=== PATIENT | female | born 1995 | race Caucasian/White ===

== ENCOUNTER 2019-01-12 11:03 | Inpatient (IN) | payer OTHER ==
[2019-01-12] MEDS: LACTATED RINGERS 1,000 ML IV SCH ×3 (13:15→16:52)
[2019-01-12] MEDS ORDERED: LIDOCAINE 0.5% (PF) 5 MG/ML (50 ML SDV) SQ PRN (14:03)
[2019-01-12] MEDS ORDERED: OXYTOCIN 10 UNIT/ML 1 ML VIAL IM PRN (14:03)
[2019-01-12] MEDS ORDERED: TERBUTALINE 1 MG/ML VIAL SQ PRN (14:03)
[2019-01-12] MEDS ORDERED: CARBOPROST TROMETHAMINE 250 MCG/ML 1 ML AMP IM PRN (14:03)
[2019-01-12] MEDS ORDERED: METHYLERGONOVINE 0.2 MG/ML 1 ML AMP IM PRN (14:03)
[2019-01-12] MEDS ORDERED: BUTORPHANOL 1 MG/ML 1 ML VIAL IV PRN (14:05)
--- NOTE | 2019-01-12 14:12 | P.HPOB ---
History of Present Illness H&P Date: 01/12/19 Chief Complaint: 39-6/7 weeks, early labor The patient is a 23-year-old 1 para 0 admitted at 39-6/7 weeks as established by last menstrual period and confirmed by second trimester ultrasound. She is admitted in early labor having made cervical change in the triage area with regular uterine contractions. Her has been uncomplicated. On labor and delivery, all signs are reassuring with category 1 heart rate tracing. Group B strep status is negative. Obstetrical history: 1 para 0 with current statistics listed in history present illness. EDC is 01/13/2019 was established by last menstrual period and confirmed by second trimester ultrasound. Laboratory workup demonstrates a blood type of A+ with a negative antibody screen. Rubella status is immune. Remainder of the laboratory workup was within normal limits. Early Glucola was normal second trimester Glucola was elevated. This was followed with a normal three-hour glucose tolerance test. Group B strep status is negative. Gynecologic history: Unremarkable with no history of any infections to include STDs. Review of Systems Review of systems is confined to history of present illness. Past Medical History Past Medical History: Asthma Additional Past Medical History / Comment(s): migraines History of Any Multi-Drug Resistant Organisms: None Reported Past Surgical History: No Surgical Hx Reported Past Psychological History: No Psychological Hx Reported Smoking Status: Never smoker Past Alcohol Use History: None Reported Past Drug Use History: None Reported Medications and Allergies Home Medications Medication Instructions Recorded Confirmed Type Pnv,Calcium 72/Iron/Folic Acid 1 each PO DAILY MDD 1 01/12/19 01/12/19 History [ Plus Tablet] Allergies Allergy/AdvReac Type Severity Reaction Status Date / Time acetaminophen [From Midrin] Allergy Anaphylaxis Verified 03/04/14 05:18 dichloralphenazone Allergy Anaphylaxis Verified 03/04/14 05:18 [From Midrin] isometheptene mucate Allergy Anaphylaxis Verified 03/04/14 05:18 [From Midrin] Exam Intake and Output 01/11/19 01/12/19 01/12/19 22:59 06:59 14:59 Other: Weight 82.1 kg In general, this is a well-developed, well-nourished white female in no acute distress. Her heart has a regular rhythm and rate without murmur. Her lungs are clear to auscultation bilaterally in all conde. Her abdomen is gravid, nondistended, has normal active bowel sounds, is soft, nontender, and without any palpable masses aside from uterine fundus. Her extremities are without any cyanosis, clubbing, or significant edema and are nontender to palpation bilaterally. Digital cervical examination demonstrates her cervix to be 4 cm dilated, approximately 80% effaced, with the vertex in presentation at -2 station. Artificial rupture of membranes is carried out demonstrating possible light meconium-stained fluid. Assessment and Plan (1) Active labor at term Current Visit: Yes Status: Acute Code(s): QVB8710 - SNOMED Code(s): 15623813 Plan: The patient has been admitted for active management of labor. She will have close maternal and surveillance and expectant management will be practiced. She is a good candidate for either IV or epidural analgesia, whichever she may choose. Should no significant cervical change be noted over the next hour or 2, Pitocin augmentation will be added.
[2019-01-12 15:17] LABS: Basophils % (A) 0 %; Eosinophils # (A) 0.1 k/uL (0-0.7); Eosinophils % (A) 0 %; HCT 43.1 % (34.0-46.0); Lymphocytes # (A) 1.5 k/uL (1.0-4.8); Lymphocytes % (A) 12 %; MCH 29.9 pg (25.0-35.0); MCHC 32.4 g/dL (31.0-37.0); MCV 92.2 fL (80.0-100.0); Mean Platelet Volume 9.6; Monocytes # (A) 0.7 k/uL (0-1.0); Monocytes % (A) 6 %; Neutrophils # (A) 9.7 k/uL (1.3-7.7); Neutrophils % (A) 80 %; Platelet Count 170 k/uL (150-450); RBC 4.67 m/uL (3.80-5.40); RDW 15.7 % (11.5-15.5); WBC 12.1 k/uL (3.8-10.6)
[2019-01-12 15:19] VITALS: BMI 30.1
[2019-01-12] MEDS ORDERED: SODIUM CHLORIDE 0.9% 100 ML BAG ONE (16:15)
[2019-01-12] MEDS ORDERED: fentaNYL (PF) 50 MCG/ML 5 ML AMP ONE (16:15)
[2019-01-12] MEDS ORDERED: ROPIVACAINE 5MG/ML 20ML VIAL ONE (16:15)
[2019-01-12] MEDS ORDERED: OXYTOCIN 30 UNITS/500 ML NS 30 UNIT in SALINE 1 500ML.BAG IV SCH (21:00)
[2019-01-12] MEDS ORDERED: ACETAMINOPHEN IV (For NPO) 1,000 MG in EMPTY BAG 1 BAG IVPB STA (23:29)
[2019-01-13] MEDS ORDERED: PENICILLIN G POTASSIUM 5,000,000 UNIT in DEXTROSE 5% IN WATER 100 ML IVPB STA ×2 (01:06)
[2019-01-13] MEDS ORDERED: SIMETHICONE 80 MG CHEWABLE PO PRN (05:00)
[2019-01-13] MEDS ORDERED: HYDROCORTISONE 2.5% RECTAL CREAM 30 GM TUBE RECTAL PRN (05:00)
[2019-01-13] MEDS ORDERED: HYDROcodone/APAP 5-325MG 1 EACH TAB PO PRN (05:00)
[2019-01-13] MEDS ORDERED: diphenhydrAMINE 50 MG CAP PO PRN (05:00)
[2019-01-13] MEDS ORDERED: ZOLPIDEM 5 MG TAB PO PRN (05:00)
[2019-01-13] MEDS ORDERED: diphenhydrAMINE 50 MG/ML 1 ML VIAL IVP PRN ×2 (05:00)
[2019-01-13] MEDS ORDERED: HYDROcodone/APAP 7.5-325MG 1 EACH TAB PO PRN (05:00)
[2019-01-13] MEDS ORDERED: WITCH HAZEL 1 EACH MED..PAD TOPICAL PRN (05:00)
[2019-01-13] MEDS ORDERED: BENZOCAINE/MENTHOL SPRAY 1 GM/SPRAY AEROSOL TOPICAL PRN (05:00)
[2019-01-13] MEDS ORDERED: diphenhydrAMINE 25 MG CAP PO PRN (05:00)
--- NOTE | 2019-01-13 05:05 | P.PROBDLV ---
Vaginal Delivery Note - . Vaginal Delivery Note: The patient is a 23-year-old 1 para 0 admitted at 39-6/7 weeks with labor progressing to 40-0/7 weeks as established by good dating parameters. She was admitted in early labor with all signs reassuring. Her was uncomplicated and group B strep status was negative. On labor and delivery, she had artificial rupture of membranes demonstrating at that time what appeared to be thin meconium-stained fluid. Over the course of her labor, it became appar ent that the fluid was actually thick meconium-stained. She had an epidural catheter placed for analgesia around the onset of the active phase of labor. She made very slow progress through the active phase of labor and had Pitocin augmentation started. She continued to make slow progress but ultimately did progress to complete where after she pushed over the course of approximately 2 hours to a normal spontaneous vaginal delivery of a viable 8 lbs. 11 oz. baby boy with Apgars of 9 at 1 minute and 9 at 5 minutes delivered in the right occiput anterior position. The nose and mouth were thoroughly suctioned with bulb suction prior to delivery of the and the infant was immediately vigorous after delivery. Certified nurse sales/marketing was standing by for direct laryngoscopy should it be necessary which it was not. The placenta was delivered spontaneously, intact, and grossly normal although there was a moderate amount of calcifications and it was clearly quite meconium-stained. There was a centrally inserted, grossly normal three-vessel cord which was very long in nature. Following delivery of the placenta, the perineum, vagina, and cervix were examined and there was noted to be bilateral labial lacerations at the labia minora which required suturing and were repaired with 3-0 chromic catgut without difficulty. There was a moderate amount of blood loss following delivery from what appeared to be uterine atony as the uterus did not respond to typical Pitocin bolus is. She therefore had one dose of Methergine given and bleeding significantly settled thereafter. Total blood loss was approximately 500 mL but may have been slightly more. All sponge, instrument, and needle counts were correct. There were no complications. Both mother and infant are resting comfortably in recovery.
[2019-01-13] MEDS ORDERED: PENICILLIN G POTASSIUM 2,500,000 UNIT in DEXTROSE 5% IN WATER 100 ML IVPB SCH ×2 (05:06)
[2019-01-13] MEDS: IBUPROFEN 600 MG TAB PO PRN ×3 (05:15→22:11)
[2019-01-13] MEDS: OXYTOCIN 20 UNITS/1000 ML NS 1,000 ML IV SCH ×2 (05:39→07:14)
[2019-01-13] MEDS: ACETAMINOPHEN TAB 325 MG TAB PO PRN (07:24)
[2019-01-13] MEDS: SENNOSIDES-DOCUSATE SODIUM 1 EACH TAB PO SCH ×2 (07:24→20:35)
[2019-01-13 13:01] LABS: Basophils % (A) 0 %; Eosinophils % (A) 0 %; HCT 27.6 % (34.0-46.0); Lymphocytes # (A) 1.7 k/uL (1.0-4.8); Lymphocytes % (A) 9 %; MCH 30.1 pg (25.0-35.0); MCHC 33.1 g/dL (31.0-37.0); Monocytes # (A) 0.9 k/uL (0-1.0); Monocytes % (A) 5 %; Neutrophils # (A) 16.7 k/uL (1.3-7.7); Neutrophils % (A) 86 %; Platelet Count 147 k/uL (150-450); RBC 3.03 m/uL (3.80-5.40); RDW 15.7 % (11.5-15.5); WBC 19.5 k/uL (3.8-10.6)
[2019-01-13 13:11] LABS: HGB 9.1 gm/dL (11.4-16.0)
[2019-01-14] MEDS: LACTATED RINGERS 1,000 ML IV SCH ×3 (05:19→05:30)
[2019-01-14 06:28] LABS: Basophils % (A) 0 %; Eosinophils # (A) 0.2 k/uL (0-0.7); Eosinophils % (A) 1 %; HGB 7.9 gm/dL (11.4-16.0); Lymphocytes # (A) 2.2 k/uL (1.0-4.8); Lymphocytes % (A) 19 %; MCH 30.4 pg (25.0-35.0); MCHC 32.7 g/dL (31.0-37.0); Mean Platelet Volume 9.5; Monocytes # (A) 0.6 k/uL (0-1.0); Monocytes % (A) 6 %; Neutrophils # (A) 8.2 k/uL (1.3-7.7); Neutrophils % (A) 72 %; Platelet Count 142 k/uL (150-450); RBC 2.58 m/uL (3.80-5.40); RDW 15.9 % (11.5-15.5); WBC 11.4 k/uL (3.8-10.6)
[2019-01-14] MEDS: ACETAMINOPHEN TAB 325 MG TAB PO PRN ×2 (11:34→22:11)
[2019-01-14] MEDS: SENNOSIDES-DOCUSATE SODIUM 1 EACH TAB PO SCH ×2 (11:35→22:11)
--- NOTE | 2019-01-14 11:38 | P.PNOBGVD ---
Subjective - Subjective Interval history: Denies any signs or symptoms of orthostasis at this time. Patient reports: Reports appetite normal, Reports voiding normally, Reports pain well controlled, Reports ambulating normally Tyler: doing well, in NICU (For probable transient tachypnea, currently weaning from oxygen.) Objective - Latest Vital Signs Latest vital signs: Vital Signs Temp Pulse Resp BP Pulse Ox 01/14/19 00:00 98.5 F 110 H 16 112/62 01/13/19 20:00 98.8 F 123 H 16 125/82 01/13/19 16:00 98.4 F 112 H 18 123/68 98 Intake and Output 01/13/19 01/14/19 01/14/19 22:59 06:59 14:59 Other: # Voids 1 1 - Exam Extremities: Present: normal Abdomen: Present: normal appearance, soft Uterus: Present: normal, firm (The fundus is tonic and nontender below the umbilicus.) - Labs Labs: Abnormal Lab Results - Last 24 Hours (Table) 01/13/19 01/14/19 Range/Units 12:35 06:16 WBC 19.5 H 11.4 H (3.8-10.6) k/uL RBC 3.03 L 2.58 L (3.80-5.40) m/uL Hgb 9.1 L D 7.9 L (11.4-16.0) gm/dL Hct 27.6 L 24.0 L (34.0-46.0) % RDW 15.7 H 15.9 H (11.5-15.5) % Plt Count 147 L 142 L (150-450) k/uL Neutrophils # 16.7 H 8.2 H (1.3-7.7) k/uL Assessment and Plan (1) Active labor at term Current Visit: Yes Status: Acute Code(s): [id number] - SNOMED Code(s): 90389043 (2) Normal spontaneous vaginal delivery Current Visit: Yes Status: Acute Code(s): O80 - ENCOUNTER FOR FULL-TERM UNCOMPLICATED DELIVERY SNOMED Code(s): 65559825 Plan: Continue routine care as the remains in the nursery for oxygen supplementation. I would anticipate discharge home tomorrow pending complications. Despite fairly significant blood loss, vital signs are stable though there remains some tachycardia. As noted above, the patient denies any ongoing symptoms of orthostasis.
[2019-01-14] MEDS: IBUPROFEN 600 MG TAB PO PRN (18:13)
[2019-01-15 01:54] VITALS: TEMP 98.1
[2019-01-15] MEDS: LACTATED RINGERS 1,000 ML IV SCH ×3 (01:56→01:58)
[2019-01-15] MEDS: SENNOSIDES-DOCUSATE SODIUM 1 EACH TAB PO SCH (09:29)
--- NOTE | 2019-01-15 10:05 | P.DS ---
Providers Date of admission: 01/12/19 12:52 Expected date of discharge: 01/15/19 Attending physician: Tanisha Sinha Primary care physician: Stated None Hospital Course: This is a 23-year-old white female 1 para 0 EDC 01/14/2019 who presented at 39-6/7 weeks' gestation in active labor. Patient's course was essentially unremarkable, group B strep cultures negative, blood type A positive, rubella status immune. Please see dictated history and physical for details. Artificial amniorrhexis revealed meconium-stained fluid. Oxytocin was started and titrated per hospital protocol. Patient went on to deliver vaginally a liveborn male infant with scores of 9 and 9 at one and 5 minutes respectively. He weighed 3985 g or 8 lbs. 11 oz. Please see dictated delivery note for details. This morning the patient is doing well. She is voiding, ambulating and passing flatus without difficulty. Vital signs are stable and she is afebrile. Fundus is firm and in the midline, symmetric and 18 week size. Extremities are negative for edema. Breasts are not engorged. Lochia rubra is moderate. Pain is well-controlled. Patient is judged to be in very good condition for discharge home. Her infant will remain in the nursery for an additional 24 hours per recommendation of regulatory lead. Patient will follow-up with me in the office in 6 weeks. I have reminded her no intercourse, tampons or douching. She will use [id number] Motrin Aleve or Advil as needed for pain. She will call with any fevers shakes or chills, foul smelling or copious lochia, with the passage of large blood clots, with any pain not alleviated by [id number] products, or indeed with any concerns. She is contemplating her options for contraception and we will discuss this further. Patient Condition at Discharge: Good Plan - Discharge Summary Discharge Rx Participant: No New Discharge Prescriptions: No Action Pnv,Calcium 72/Iron/Folic Acid [ Plus Tablet] 1 each PO DAILY MDD 1 Discharge Medication List Pnv,Calcium 72/Iron/Folic Acid [ Plus Tablet] 1 each PO DAILY MDD 1 01/12/19 [History] Follow up Appointment(s)/Referral(s): Tanisha Sinha MD [STAFF PHYSICIAN] - 6 Weeks Discharge Disposition: HOME SELF-CARE
[2019-01-15] MEDS: IBUPROFEN 600 MG TAB PO PRN ×2 (10:56→17:11)
[2019-01-15 17:04] VITALS: BP 130/89; PULSE 102; RESP 18
== END 2019-01-15 18:33 | disposition home or self-care (01) | DRG 806 ==
LOC: FBPOP 11:03 → 4FBP 12:52
PROVIDERS: ADMIT Obstetrics & Gynecology; ATTEND Obstetrics & Gynecology
PROC: 00HU33Z Insertion of Infusion Device into Spinal Canal, Percutaneous Approach (ICD-10-PCS; 2019-01-12)
PROC: 3E0R3BZ Introduction of Anesthetic Agent into Spinal Canal, Percutaneous Approach (ICD-10-PCS; 2019-01-12)
PROC: 10E0XZZ Delivery of Products of Conception, External Approach (ICD-10-PCS; principal; 2019-01-13)
PROC: 0HQ9XZZ Repair Perineum Skin, External Approach (ICD-10-PCS; 2019-01-13)
DX: O77.0 Labor and delivery complicated by meconium in amniotic fluid (principal); O72.1 Other immediate postpartum hemorrhage; Z37.0 Single live birth; O70.0 First degree perineal laceration during delivery; Z3A.39 39 weeks gestation of pregnancy; O99.52 Diseases of the respiratory system complicating childbirth; J45.909 Unspecified asthma, uncomplicated; G43.909 Migraine, unspecified, not intractable, without status migrainosus; Z79.899 Other long term (current) drug therapy; Z88.6 Allergy status to analgesic agent; Z88.8 Allergy status to other drugs, medicaments and biological substances
CPT/HCPCS: 59025; 85025; 86850; 86900; 86901; 88307; 99213

== ENCOUNTER → 2019-05-03 | Outpatient (CLI) | payer OTHER ==
[2019-05-03 15:02] LABS: Anisocytosis Slight; Basophils # (A) 0.1 k/uL (0-0.2); Basophils % (A) 1 %; Eosinophils # (A) 0.2 k/uL (0-0.7); Eosinophils % (A) 3 %; HCT 41.1 % (34.0-46.0); HGB 13.4 gm/dL (11.4-16.0); Lymphocytes # (A) 1.5 k/uL (1.0-4.8); Lymphocytes % (A) 28 %; MCH 27.2 pg (25.0-35.0); MCHC 32.6 g/dL (31.0-37.0); MCV 83.3 fL (80.0-100.0); Mean Platelet Volume 7.4; Monocytes # (A) 0.3 k/uL (0-1.0); Monocytes % (A) 6 %; Neutrophils # (A) 3.3 k/uL (1.3-7.7); Neutrophils % (A) 60 %; Platelet Count 264 k/uL (150-450); RBC 4.94 m/uL (3.80-5.40); RDW 16.8 % (11.5-15.5); WBC 5.5 k/uL (3.8-10.6)
[2019-05-03 15:06] LABS: INR 1.1 (<1.2); Prothrombin Time 11.9 sec (9.0-12.0)
[2019-05-03 19:14] LABS: African American GFR (CKD) 118.8 (60.0-200.0); Albumin 4.5 g/dL (3.80-4.90); Albumin/Globulin Ratio 2.65 (1.60-3.17); Anion Gap 10.5 mmol/L (4.00-12.00); BUN/Creat Ratio 13.75 Ratio (12.00-20.00); Calcium 8.5 mg/dL (8.7-10.3); Carbon Dioxide 25.5 mmol/L (21.6-31.8); Globulin 1.7 g/dL (1.6-3.3); Non-African American GFR(CKD) 102.5 (60.0-200.0); Potassium 3.9 mmol/L (3.5-5.5); Total Bilirubin 0.6 mg/dL (0.2-1.2); Total Protein 6.2 g/dL (6.2-8.2)
== END | disposition home or self-care (01) ==
LOC: LABWHC1 14:06
PROVIDERS: ATTEND Family Medicine
DX: N92.0 Excessive and frequent menstruation with regular cycle (principal)
CPT/HCPCS: 36415; 80053; 85025; 85610; 85730

== ENCOUNTER → 2020-08-28 | Outpatient (CLI) | payer OTHER, BC ==
--- NOTE | 2020-08-28 12:09 | US ---
EXAMINATION TYPE: US thyroid st tissue head/neck DATE OF EXAM: 08/28/2020 COMPARISON: NONE CLINICAL HISTORY: E04.[address] palpated nodule. GLAND SIZE: Right Lobe: 5.0 x 1.5 x 1.2 cm Overall Parenchyma: homogenous Left Lobe: 5.0 x 1.1 x 1.3 cm Overall Parenchyma: homogeneous Isthmus Thickness: 0.2 cm NODULES RIGHT: # of nodules measured on right: 0 LEFT: # of nodules measured on left: 0 ISTHMUS: # of nodules measured in the isthmus: 0 Bilateral neck scanned, no evidence of lymphadenopathy. IMPRESSION: Normal thyroid ultrasound
== END | disposition home or self-care (01) ==
LOC: RADUSWWP 11:01
PROVIDERS: ATTEND Family Medicine
DX: E04.9 Nontoxic goiter, unspecified (principal)
CPT/HCPCS: 76536

== ENCOUNTER 2020-10-09 16:44 | Emergency (ER) | payer OTHER ==
[2020-10-09 16:48] VITALS: TEMP 99
--- NOTE | 2020-10-09 17:20 | ED ---
Arrhythmia/Palpitations HPI - General Chief Complaint: Arrhythmia/Palpitations Stated Complaint: Chest Pain, SOB Time Seen by Provider: 10/09/20 16:59 Source: patient, RN notes reviewed Mode of arrival: ambulatory Limitations: no limitations - History of Present Illness Initial Comments: 25-year-old white female, underweight patient presents to the emergency room with complaints of feeling palpitations with chest tightness and shortness of breath since Monday. Seen her PMD Dr. Ndiaye and medications were changed for her anxiety. Patient had ultrasound of her thyroid, and lab work all was within normal limits. Patient states she smokes marijuana, vapes, but denies any other illicit drugs. patient admits to drinking half a cup of coffee a day no other caffeine intake. Anxiety was diagnosed in 2018 when she was placed on medications. Patient states father had 3 heart attacks, first in his early 40s and now Has a defibrillator currently in place. Paternal grandmother also has cardiac conditions. No sudden cardiac in the family. patient states Dr. Ndiaye prescribed methylphenidate 40 mg on Monday for her anxity. patient jamar es fevers, states had one episode of vomiting on Monday but not since. Appetite has decreased. MD Complaint: palpitations -: days(s) (3) Context: recent drug use, change in medication Associated Symptoms: chest pain, nausea/vomiting, anxiety Treatments Prior to Arrival: beta-roberto - Related Data Home Medications Medication Instructions Recorded Confirmed Methylphenidate HCl 40 mg PO DAILY 10/09/20 10/09/20 [Methylphenidate HCl CD] Metoprolol Succinate [Toprol XL] 25 mg PO DAILY 10/09/20 10/09/20 Venlafaxine HCl ER [Effexor Xr] 75 mg PO DAILY 10/09/20 10/09/20 busPIRone HCL 15 mg PO BID@1500,2300 10/09/20 10/09/20 busPIRone HCL 30 mg PO QAM 10/09/20 10/09/20 Allergies Allergy/AdvReac Type Severity Reaction Status Date / Time dichloralphenazone Allergy Anaphylaxis Verified 10/09/20 17:51 [From Midrin] isometheptene mucate Allergy Anaphylaxis Verified 10/09/20 17:51 [From Midrin] Review of Systems ROS Statement: Those systems with pertinent positive or pertinent negative responses have been documented in the HPI. ROS Other: All systems not noted in ROS Statement are negative. Past Medical History Past Medical History: Asthma Additional Past Medical History / Comment(s): migraines History of Any Multi-Drug Resistant Organisms: None Reported Past Surgical History: No Surgical Hx Reported Past Anesthesia/Blood Transfusion Reactions: No Reported Reaction Past Psychological History: No Psychological Hx Reported Smoking Status: Vaper Past Alcohol Use History: None Reported Past Drug Use History: None Reported - Past Family History Mother Family Medical History: Musculoskeletal Disorder Additional Family Medical History / Comment(s): back surgery, stomach ulcers, migraines General Exam Limitations: no limitations General appearance: alert, anxious Head exam: Present: atraumatic, normocephalic, normal inspection Eye exam: Present: normal appearance, PERRL, EOMI. Absent: scleral icterus, conjunctival injection, periorbital swelling Neck exam: Present: normal inspection. Absent: tenderness, meningismus, lymphadenopathy Respiratory exam: Present: normal lung sounds bilaterally. Absent: respiratory distress, wheezes, rales, rhonchi, stridor Cardiovascular Exam: Present: normal rhythm, tachycardia (rate 107 no ectopy), normal heart sounds GI/Abdominal exam: Present: soft, normal bowel sounds. Absent: distended, tenderness, guarding, rebound, rigid Neurological exam: Present: alert, oriented X3, CN II-XII intact Psychiatric exam: Present: anxious Skin exam: Present: warm, dry, other (tattoo to base of neck with son's birthdate) Course Vital Signs 10/09/20 10/09/20 16:45 18:43 Temperature 99.0 F Pulse Rate 116 H 96 Respiratory 20 16 Rate Blood Pressure 148/93 127/71 O2 Sat by Pulse 99 98 Oximetry EKG Findings - EKG Comments: EKG Findings:: EKG shows sinus tachycardia at a ventricular rate of 107, NV interval of 24 ms QRS of 94 ms QTc of 448. repeat EKG done at 1832 shows ventricular rate of 81 NV interval of 114 ms QRS of 92 ms and QTC of 439 ms. Normal sinus rhythm with sinus arrhythmia - EKG Results: EKG: interpreted by BRENDEN, sinus rhythm EKG shows: tachycardia Medical Decision Making - Medical Decision Making labs REVIEWed with ketones in urine. patient hydrated with 1 L of normal saline. States feels better less anxious, ventricular rate 81 sinus rhythm on repeat EKG. Patient advised follow-up with primary care doctor this week regarding anxiety. she comfortable with going home feels less anxious and that Labs were within normal limits and EKG sinus. - Lab Data Result diagrams: 10/09/20 17:28 10/09/20 17:28 Lab Results 10/09/20 10/09/20 10/09/20 Range/Units 17:28 17:28 17:28 WBC 6.2 (3.8-10.6) k/uL RBC 4.53 (3.80-5.40) m/uL Hgb 13.5 (11.4-16.0) gm/dL Hct 40.6 (34.0-46.0) % MCV 89.7 (80.0-100.0) fL MCH 29.8 (25.0-35.0) pg MCHC 33.2 (31.0-37.0) g/dL RDW 12.8 (11.5-15.5) % Plt Count 238 (150-450) k/uL MPV 7.4 Neutrophils % 72 % Lymphocytes % 20 % Monocytes % 6 % Eosinophils % 0 % Basophils % 0 % Neutrophils # 4.4 (1.3-7.7) k/uL Lymphocytes # 1.3 (1.0-4.8) k/uL Monocytes # 0.4 (0-1.0) k/uL Eosinophils # 0.0 (0-0.7) k/uL Basophils # 0.0 (0-0.2) k/uL D-Dimer (<0.60) mg/L FEU Sodium 135 L (137-145) mmol/L Potassium 3.8 (3.5-5.1) mmol/L Chloride 102 (98-107) mmol/L Carbon Dioxide 22 (22-30) mmol/L Anion Gap 11 mmol/L BUN 14 (7-17) mg/dL Creatinine 0.61 (0.52-1.04) mg/dL Est GFR (CKD-EPI)AfAm >90 (>60 ml/min/1.73 sqM) Est GFR (CKD-EPI)NonAf >90 (>60 ml/min/1.73 sqM) Glucose 125 H (74-99) mg/dL Calcium 9.3 (8.4-10.2) mg/dL Magnesium 1.9 (1.6-2.3) mg/dL Total Bilirubin 0.9 (0.2-1.3) mg/dL AST 25 (14-36) U/L ALT 16 (4-34) U/L Alkaline Phosphatase 38 (38-126) U/L Troponin I <0.012 (0.000-0.034) ng/mL Total Protein 7.5 (6.3-8.2) g/dL Albumin 4.8 (3.5-5.0) g/dL TSH 1.270 (0.465-4.680) mIU/L Urine Color Urine Appearance (Clear) Urine pH (5.0-8.0) Ur Specific [place] (1.001-1.035) Urine Protein (Negative) Urine Glucose (UA) (Negative) Urine Ketones (Negative) Urine Blood (Negative) Urine Nitrite (Negative) Urine Bilirubin (Negative) Urine Urobilinogen (<2.0) mg/dL Ur Leukocyte Esterase (Negative) Urine HCG, Qual (Not Detectd) Urine Opiates Screen (NotDetected) Ur Oxycodone Screen (NotDetected) Urine Methadone Screen (NotDetected) Ur Propoxyphene Screen (NotDetected) Ur Barbiturates Screen (NotDetected) U Tricyclic Antidepress (NotDetected) Ur Phencyclidine Scrn (NotDetected) Ur Amphetamines Screen (NotDetected) U Methamphetamines Scrn (NotDetected) U Benzodiazepines Scrn (NotDetected) Urine Cocaine Screen (NotDetected) U Marijuana (THC) Screen (NotDetected) 10/09/20 10/09/20 10/09/20 Range/Units 17:28 17:35 17:35 WBC (3.8-10.6) k/uL RBC (3.80-5.40) m/uL Hgb (11.4-16.0) gm/dL Hct (34.0-46.0) % MCV (80.0-100.0) fL MCH (25.0-35.0) pg MCHC (31.0-37.0) g/dL RDW (11.5-15.5) % Plt Count (150-450) k/uL MPV Neutrophils % % Lymphocytes % % Monocytes % % Eosinophils % % Basophils % % Neutrophils # (1.3-7.7) k/uL Lymphocytes # (1.0-4.8) k/uL Monocytes # (0-1.0) k/uL Eosinophils # (0-0.7) k/uL Basophils # (0-0.2) k/uL D-Dimer <0.17 (<0.60) mg/L FEU Sodium (137-145) mmol/L Potassium (3.5-5.1) mmol/L Chloride (98-107) mmol/L Carbon Dioxide (22-30) mmol/L Anion Gap mmol/L BUN (7-17) mg/dL Creatinine (0.52-1.04) mg/dL Est GFR (CKD-EPI)AfAm (>60 ml/min/1.73 sqM) Est GFR (CKD-EPI)NonAf (>60 ml/min/1.73 sqM) Glucose (74-99) mg/dL Calcium (8.4-10.2) mg/dL Magnesium (1.6-2.3) mg/dL Total Bilirubin (0.2-1.3) mg/dL AST (14-36) U/L ALT (4-34) U/L Alkaline Phosphatase (38-126) U/L Troponin I (0.000-0.034) ng/mL Total Protein (6.3-8.2) g/dL Albumin (3.5-5.0) g/dL TSH (0.465-4.680) mIU/L Urine Color Yellow Urine Appearance Clear (Clear) Urine pH 6.5 (5.0-8.0) Ur Specific [place] 1.022 (1.001-1.035) Urine Protein Negative (Negative) Urine Glucose (UA) Negative (Negative) Urine Ketones 2+ H (Negative) Urine Blood Negative (Negative) Urine Nitrite Negative (Negative) Urine Bilirubin Negative (Negative) Urine Urobilinogen 2.0 (<2.0) mg/dL Ur Leukocyte Esterase Negative (Negative) Urine HCG, Qual Not Detected (Not Detectd) Urine Opiates Screen Not Detected (NotDetected) Ur Oxycodone Screen Not Detected (NotDetected) Urine Methadone Screen Not Detected (NotDetected) Ur Propoxyphene Screen Not Detected (NotDetected) Ur Barbiturates Screen Not Detected (NotDetected) U Tricyclic Antidepress Not Detected (NotDetected) Ur Phencyclidine Scrn Not Detected (NotDetected) Ur Amphetamines Screen Not Detected (NotDetected) U Methamphetamines Scrn Not Detected (NotDetected) U Benzodiazepines Scrn Not Detected (NotDetected) Urine Cocaine Screen Not Detected (NotDetected) U Marijuana (THC) Screen Detected H (NotDetected) Disposition Clinical Impression: Palpitations, Dehydration Disposition: HOME SELF-CARE Condition: Stable Instructions (If sedation given, give patient instructions): Heart Palpitations (ED), Dehydration (ED) Additional Instructions: continue taking medications as prescribed by your doctor and follow up with your primary care doctor this week. Return to the emergency room if chest pain shortness of breath or increasing palpitations. Is patient prescribed a controlled substance at d/c from ED?: No Referrals: Tona Ndiaye MD [Primary Care Provider] - 1-2 days Time of Disposition: 19:43
[2020-10-09] MEDS ORDERED: SODIUM CHLORIDE 0.9% 1,000 ML IV STA (17:24)
[2020-10-09 17:44] LABS: Basophils % (A) 0 %; Eosinophils % (A) 0 %; HCT 40.6 % (34.0-46.0); HGB 13.5 gm/dL (11.4-16.0); Lymphocytes # (A) 1.3 k/uL (1.0-4.8); Lymphocytes % (A) 20 %; MCH 29.8 pg (25.0-35.0); MCHC 33.2 g/dL (31.0-37.0); MCV 89.7 fL (80.0-100.0); Mean Platelet Volume 7.4; Monocytes # (A) 0.4 k/uL (0-1.0); Monocytes % (A) 6 %; Neutrophils # (A) 4.4 k/uL (1.3-7.7); Neutrophils % (A) 72 %; Platelet Count 238 k/uL (150-450); RBC 4.53 m/uL (3.80-5.40); RDW 12.8 % (11.5-15.5); WBC 6.2 k/uL (3.8-10.6)
[2020-10-09 17:44] LABS: Appearance,Urine Clear (Clear); Bilirubin,Urine Negative (Negative); Blood,Urine Negative (Negative); Color,Urine Yellow; Glucose,Urine (UA) Negative (Negative); Ketones,Urine 2+ (Negative); Leukocyte Esterase,Urine Negative (Negative); Nitrite,Urine Negative (Negative); PH, Urine 6.5 (5.0-8.0); Protein,Urine Negative (Negative); Specific Gravity,Urine 1.022 (1.001-1.035)
[2020-10-09 17:45] LABS: ALT 16 U/L (4-34); AST 25 U/L (14-36); African American GFR (CKD) >90 (>60 ml/min/1.73 sqM); Albumin 4.8 g/dL (3.5-5.0); Alkaline Phosphatase 38 U/L (38-126); Anion Gap 11 mmol/L; Blood Urea Nitrogen 14 mg/dL (7-17); Calcium 9.3 mg/dL (8.4-10.2); Carbon Dioxide 22 mmol/L (22-30); Chloride 102 mmol/L (98-107); Glucose 125 mg/dL (74-99); Magnesium 1.9 mg/dL (1.6-2.3); Non-African American GFR(CKD) >90 (>60 ml/min/1.73 sqM); Potassium 3.8 mmol/L (3.5-5.1); Sodium 135 mmol/L (137-145); Total Bilirubin 0.9 mg/dL (0.2-1.3); Total Protein 7.5 g/dL (6.3-8.2)
[2020-10-09 17:54] LABS: Amphetamine Screen,Urine Not Detected (NotDetected); Barbiturate Screen,Urine Not Detected (NotDetected); Benzodiazepines Screen,Urine Not Detected (NotDetected); Cocaine Screen,Urine Not Detected (NotDetected); Methadone Screen, Urine Not Detected (NotDetected); Opiate Screen,Urine Not Detected (NotDetected); Oxycodone Screen, Urine Not Detected (NotDetected); Phencyclidine Screen,Urine Not Detected (NotDetected); Tricyclic Antidepressant,Urine Not Detected (NotDetected); Urn Cannabinoid Scrn Detected (NotDetected)
[2020-10-09 18:44] VITALS: BP 127/71; RESP 16
[2020-10-09 20:04] VITALS: PULSE 72
== END 2020-10-09 20:04 | disposition home or self-care (01) ==
LOC: EC 16:44
DX: E86.0 Dehydration (principal); R00.2 Palpitations; J45.909 Unspecified asthma, uncomplicated; F41.9 Anxiety disorder, unspecified; R82.4 Acetonuria; F17.290 Nicotine dependence, other tobacco product, uncomplicated; Z79.899 Other long term (current) drug therapy; Z88.8 Allergy status to other drugs, medicaments and biological substances
CPT/HCPCS: 36415; 80053; 80306; 81003; 81025; 83735; 84443; 84484; 85025; 85379; 93005; 96360; 99285

== ENCOUNTER → 2020-10-12 | Outpatient (CLI) | payer OTHER ==
--- NOTE | 2020-10-13 07:46 | ECHOF ---
Referral Reason:R01.1 heart murmur MEASUREMENTS -------- HEIGHT: 162.6 cm WEIGHT: 47.2 kg BP: RVIDd: 3.0 cm (< 3.3) IVSd: 0.6 cm (0.6 - 1.1) LVIDd: 4.3 cm (3.9 - 5.3) LVPWd: 1.0 cm (0.6 - 1.1) IVSs: 0.9 cm LVIDs: 3.6 cm LVPWs: 1.1 cm LA Diam: 2.5 cm (2.7 - 3.8) LAESV Index (A-L): 11.47 ml/m Ao Diam: 2.5 cm (2.0 - 3.7) AV Cusp: 1.8 cm (1.5 - 2.6) MV EXCURSION: 23.427 mm (> 18.000) MV EF SLOPE: 92 mm/s (70 - 150) EPSS: 0.7 cm MV E [place]dal[place]: 0.59 m/s MV DecT: 193 ms MV A [place]: 0.67 m/s MV E/A Ratio: 0.87 RAP: 5.00 mmHg RVSP: 19.39 mmHg FINDINGS -------- Sinus rhythm. This was a technically good study. LV size, wall thickness and systolic function are normal, with an EF greater than 55%. The left shayna tricular size is normal. The right ventricle is normal in size. The left atrial size is normal. The right atrial size is normal. The aortic valve is trileaflet, and appears structurally normal. No aortic stenosis or regurgitation. Mild mitral regurgitation is present. Mild tricuspid regurgitation present. Right ventricular systolic pressure is normal at < 35 mmHg. There is no pulmonic regurgitation present. The aortic root size is normal. There is no pericardial effusion. CONCLUSIONS -------- 1. LV size, wall thickness and systolic function are normal, with an EF greater than 55%. 2. The left ventricular size is normal. 3. The right ventricle is normal in size. 4. The left atrial size is normal. 5. The right atrial size is normal. 6. The aortic valve is trileaflet, and appears structurally normal. No aortic stenosis or regurgitati on. 7. Mild mitral regurgitation is present. 8. Mild tricuspid regurgitation present. 9. There is no pericardial effusion. HAND ETCHER HELPER: Oliva Lazaro RDCS
== END | disposition home or self-care (01) ==
LOC: RADECHMAIN 14:59
PROVIDERS: ATTEND Family Medicine
DX: I08.1 Rheumatic disorders of both mitral and tricuspid valves (principal)
CPT/HCPCS: 93306

== ENCOUNTER → 2021-01-14 | Outpatient (CLI) | payer OTHER, BC ==
[2021-01-14 14:24] LABS: Basophils # (A) 0.02 X 10*3/uL (0.00-0.10); Basophils % (A) 0.5 %; Eosinophils # (A) 0 X 10*3/uL (0.04-0.35); Eosinophils % (A) 0 %; HCT 41.5 % (37.2-46.3); HGB 13.1 g/dL (12.0-15.0); Lymphocytes # (A) 1.54 X 10*3/uL (0.90-5.00); Lymphocytes % (A) 35.4 %; MCHC 31.6 g/dL (32.0-37.0); Mean Platelet Volume 10.8 fL (9.5-12.2); Monocytes # (A) 0.41 X 10*3/uL (0.20-1.00); Monocytes % (A) 9.4 %; Neutrophils # (A) 2.37 X 10*3/uL (1.80-7.70); Neutrophils % (A) 54.5 %; Platelet Count 245 X 10*3/uL (140-440); RBC 4.37 X 10*6/uL (4.10-5.20); RDW 12.7 % (11.5-14.5); WBC 4.35 X 10*3/uL (4.50-10.00)
[2021-01-14 16:53] LABS: Erythrocyte Sedimentation Rate 1 mm/Hr (0-20)
[2021-01-14 22:26] LABS: Immunoglobulin E 54.2 IU/mL (0.00-114.00)
[2021-01-14 22:37] LABS: ALT 15 U/L (8-44); AST 18 U/L (13-35); African American GFR (CKD) 117.9 (60.0-200.0); Albumin/Globulin Ratio 2.05 (1.60-3.17); Alkaline Phosphatase 37 U/L (41-126); Chloride 113 mmol/L (96-109); Cholesterol 127 mg/dL (0-200); Globulin 2.1 g/dL (1.6-3.3); Glucose 103 mg/dL (70-110); Non-African American GFR(CKD) 101.8 (60.0-200.0); Potassium 4.4 mmol/L (3.5-5.5); Sodium 141 mmol/L (135-145); Total Bilirubin 0.3 mg/dL (0.2-1.2); Total Protein 6.4 g/dL (6.2-8.2); Triglycerides <50.0 mg/dL (0.0-149.0)
== END | disposition home or self-care (01) ==
LOC: LABWHC1 10:09
PROVIDERS: ATTEND Family Medicine
DX: Z13.220 Encounter for screening for lipoid disorders (principal); Z13.228 Encounter for screening for other metabolic disorders; E56.9 Vitamin deficiency, unspecified; G43.709 Chronic migraine without aura, not intractable, without status migrainosus; F31.81 Bipolar II disorder; F41.9 Anxiety disorder, unspecified
CPT/HCPCS: 36415; 80053; 80061; 82533; 82607; 82785; 83835; 84439; 84443; 84480; 85025; 85652

== ENCOUNTER → 2021-12-31 | Outpatient (CLI) | payer OTHER, BC ==
--- NOTE | 2021-12-31 09:16 | USB ---
Reason for exam: clinical finding. Physical Findings: A clinical breast exam by your physician is recommended on an annual basis and results should be correlated with mammographic findings. US Breast LT Left limited breast ultrasound including focal area of concern, retroareolar and axilla demonstrates no cystic or solid lesion seen. Results were given to the patient verbally at the time of the exam. ASSESSMENT: Negative, BI-RAD 1 RECOMMENDATION: Clinical management of the left breast. Manage patient on a clinical basis.
== END | disposition home or self-care (01) ==
LOC: RADUSWWP 07:31
PROVIDERS: ATTEND Family Medicine
DX: N63.0 Unspecified lump in unspecified breast (principal)

== ENCOUNTER → 2023-01-28 | Outpatient (CLI) | payer BC ==
--- NOTE | 2023-01-28 21:07 | MR ---
EXAMINATION TYPE: MR brain wo/w con DATE OF EXAM: 01/28/2023 11:53 AM CLINICAL INDICATION:Female, 27 years old with history of R51.9 headache; Headaches, Numbness fingerti ps and toes, Pain neck and back, Weakness/heaviness both sides COMPARISON: None TECHNIQUE: Multi planar, multi sequence imaging was performed through the brain including: T1, T2, In version recovery, susceptibility weighted imaging and gradient echo imaging and Diffusion weighted im aging. The patient was then given intravenous contrast and multi planar, T1 fat-saturation images wer e obtained. IV Contrast: 4.5 cc Gadavist FINDINGS: The lynch-white junctions, ventricular system, basal cisterns appear unremarkable. Diffusion-weighted imaging shows no evidence of restricted diffusion to suggest acute/subacute infarct. Intracranial art erial flow voids are maintained. Midline structures show no abnormality. The susceptibility weighted images do not reveal any evidence for micro-hemorrhage. After administration of gadolinium, no abnorm al enhancement is seen. Developmental venous anomaly in the right parietal lobe. The bone marrow signal is within normal limits. Paranasal sinuses and mastoid air cells: No significant paranasal sinus disease. Visualized orbits: Orbital contents are intact. IMPRESSION: 1. No evidence of demyelination or abnormal white matter changes as visualized. No evidence of intra cranial mass, acute/subacute infarct, or abnormal enhancement. 2. Developmental venous anomaly in the right parietal lobe.
== END | disposition home or self-care (01) ==
LOC: RADMRIMAIN 11:04
PROVIDERS: ATTEND Family Medicine
DX: Q28.3 Other malformations of cerebral vessels (principal); M54.2 Cervicalgia; R53.1 Weakness; R20.0 Anesthesia of skin
CPT/HCPCS: 70553; A9585

== ENCOUNTER → 2024-01-30 | Outpatient (CLI) | payer BC ==
--- NOTE | 2024-01-30 13:40 | XR ---
EXAMINATION TYPE: XR wrist complete RT DATE OF EXAM: 01/30/2024 CLINICAL HISTORY: pain TECHNIQUE: Frontal, lateral and oblique images of the right wrist are obtained. COMPARISON: None. FINDINGS: There is no acute fracture/dislocation evident. The joint spaces appear within normal limits. The o verlying soft tissue appears unremarkable. IMPRESSION: There is no acute fracture or dislocation seen. ICD 10 NO FRACTURE, INITIAL EVALUATION
== END | disposition home or self-care (01) ==
LOC: RADXRMAIN 12:50
PROVIDERS: ATTEND Internal Medicine Geriatric Medicine
DX: M25.531 Pain in right wrist (principal)